=== PATIENT | female | born 1955 | race Caucasian/White ===

== ENCOUNTER 2018-04-29 11:57 | Emergency (ER) | payer OTHER ==
[2018-04-29] MEDS ORDERED: BACITRACIN ZINC OINTMENT 15 GM TP ONE (12:53)
[2018-04-29] MEDS ORDERED: DIPH/PERTUSS(ACELL)/TETANUS VAC/PF 0.5 ML SYR (>=10YO) IM ONE (12:53)
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
[2018-04-29 13:46] VITALS: BP 150/78
== END 2018-04-29 13:46 | disposition home or self-care (01) ==
LOC: ER 11:57
DX: S00.31XA Abrasion of nose, initial encounter (principal); S50.812A Abrasion of left forearm, initial encounter; M54.2 Cervicalgia; V49.40XA Driver injured in collision with unspecified motor vehicles in traffic accident, initial encounter; Z23 Encounter for immunization; F17.200 Nicotine dependence, unspecified, uncomplicated
CPT/HCPCS: 90715; 99283; J3490